=== PATIENT | female | born 1930 | race Caucasian/White ===

== ENCOUNTER 2017-06-17 21:19 | Emergency (ER) | payer MEDICARE ==
--- NOTE | 2017-06-17 21:47 | ER Document Report ---
ED Fall - General Mode of Arrival: Ambulatory Information source: Patient TRAVEL OUTSIDE OF THE [place] IN LAST 30 DAYS: No - General Chief Complaint: Fall Injury Stated Complaint: FALL/HEAD AND BACK PAIN Time Seen by Provider: 06/17/17 21:39 Notes: Patient is an 86-year-old female who presents to the emergency department today with complaints of a fall that occurred just prior to arrival. Patient states she lost her balance and fell backwards hitting her head on a garage door. Patient is on warfarin. Patient complains of tailbone/buttock pain as well. Patient states she has a headache, left eye pain, and associated dizziness. Patient denies any loss of consciousness. (MARYSOL GREEN) - Related data Allergies/Adverse Reactions: ibuprofen [From Motrin] Allergy (Mild, Verified 02/27/14 02:34) Penicillins Allergy (Mild, Verified 02/27/14 02:34) Past Medical History - General Information source: Patient - Social History Smoking Status: Never Smoker Cigarette use (# per day): No Frequency of alcohol use: None Drug Abuse: None Lives with: Family Family History: Reviewed & Not Pertinent Patient has suicidal ideation: No Patient has homicidal ideation: No - Medical History Medical History: Negative Renal/ Medical History: Denies: Hx Peritoneal Dialysis Past Surgical History: Reports: Hx Appendectomy, Hx Orthopedic Surgery - right knee replacement, Hx Thyroid Surgery - Immunizations Hx Diphtheria, Pertussis, Tetanus Vaccination: Yes Hx Pneumococcal Vaccination: 02/28/08 Review of Systems - Review of Systems Constitutional: No symptoms reported EENT: No symptoms reported Cardiovascular: See HPI, Dizziness Respiratory: No symptoms reported Gastrointestinal: No symptoms reported Genitourinary: No symptoms reported Female Genitourinary: No symptoms reported Musculoskeletal: See HPI, Back pain Skin: No symptoms reported Hematologic/Lymphatic: No symptoms reported Neurological/Psychological: See HPI, Headaches. denies: Lost consciousness -: Yes All other systems reviewed and negative Physical Exam - Vital signs Vitals: Temp Pulse Resp BP Pulse Ox 97.6 F 77 12 172/93 H 97 06/17/17 21:25 06/17/17 21:25 06/17/17 21:25 06/17/17 21:25 06/17/17 21:25 - Notes Notes: Physical Exam: General: Alert, appears well. HEENT: Normocephalic. Atraumatic, no hematoma. PERRL. Extraocular movements intact. Oropharynx clear. Neck: Supple. Non-tender. Respiratory: No respiratory distress. Clear and equal breath sounds bilaterally. Cardiovascular: Irregularly irregular, regular rate. Abdominal: Normal Inspection. Non-tender. No distension. Normal Bowel Sounds. Back: Tailbone tenderness with palpation. No deformity or step off. Extremities: Moves all four extremities. Upper extremities: Normal inspection. Normal ROM. Lower extremities: Normal inspection. No edema. Normal ROM. Neurological: Normal cognition. AAOx4. Normal speech. Psychological: Normal affect. Normal Mood. Skin: Warm. Dry. Normal color. (MARYSOL GREEN) Course - Re-evaluation Re-evalutation: 06/17/17 23:33 CT head and cervical spine show no acute abnormalities. Pending sacrum and coccyx x-ray at this time. Patient does complain of minor dizziness but she explicitly states that this occurred after her fall she was not dizzy prior to her fall. When I questioned her she again stated that her dizziness started after hitting her head not prior. Therefore, I do not feel any other workup is needed at this time. I did discuss if her symptoms continue she could be suffering from other concussion symptoms and would need to be reevaluated early next week by her primary care physician. She understands and agrees with this plan. 06/17/17 23:50 Patient coccyx x-ray shows no acute abnormality per my read. Patient was discharged. I was with patient while she was having x-ray and she was able to weight-bear without difficulty. I discussed using Tylenol for pain as well as heating pad. Regards to any dizziness that she may experience I expressed if she continues to have the symptoms he is to follow-up with primary care physician on Monday or Monday of next week. She was not ataxic did not express dizziness when getting up for x-ray. (ERVIN SOTO) - Vital Signs Vital signs: Temp Pulse Resp BP Pulse Ox 97.6 F 77 18 153/85 H 94 06/17/17 21:25 06/18/17 00:46 06/18/17 00:46 06/18/17 00:46 06/18/17 00:46 Discharge - Discharge Clinical Impression: Fall from standing Qualifiers: Encounter type: initial encounter Qualified Code(s): W19.XXXA - Unspecified fall, initial encounter Condition: Good Disposition: HOME, SELF-CARE Instructions: Coccyx Injury ([facility]) Additional Instructions: Please use [id number] Tylenol as needed for pain per instructions on bottle and use heating pad as discussed. If you begin to experience dizziness that becomes more frequent or is not improved over the next 24-48 hours please visit your primary care physician or come to emergency department for reevaluation on Monday. Referrals: SURESH ZARATE MD [Primary Care Provider] - 06/19/17 (If your symptoms are worsening or not improving) Scribe Attestation: 06/26/17 07:48 I personally performed the services described in the documentation, reviewed and edited the documentation which was dictated to the scribe in my presence, and it accurately records my words and actions. (ERVIN SOTO) Scribe Documentation - Scribe Written by Madisynibe:: Modesto Giraldo, 06/17/2017 [id number] acting as scribe for :: Marco Antonio
--- NOTE | 2017-06-17 22:41 | RADIOLOGY REPORT (SQ) ---
EXAM DESCRIPTION: CT CERVICAL SPINE WITHOUT; CT HEAD WITHOUT COMPLETED DATE/TIME: 06/17/2017 10:22 pm REASON FOR STUDY: fall from standing, hx of cervical fusion; fall, on warfarin COMPARISON: None. TECHNIQUE: Axial images acquired through the brain and cervical spine without intravenous contrast. Images reviewed with brain, subdural, lung, soft tissue and bone windows. Reconstructed coronal and sagittal MPR images reviewed. Images stored on PACS. All CT scanners at this facility use dose modulation, iterative reconstruction, and/or weight based d osing when appropriate to reduce radiation dose to as low as reasonably achievable (ALARA). [facility]: Dose Right [facility]: CareDose [facility]: Dose Right [facility]: Teradose 4D [facility]: [employer] RADIATION DOSE: CT Rad equipment meets quality standard of care and radiation dose reduction techniq ues were employed. CTDIvol: 16.6 mGy. DLP: 350 mGy-cm.; CT Rad equipment meets quality standard of ca re and radiation dose reduction techniques were employed. CTDIvol: 53.2 mGy. DLP: 1097 mGy-cm. mGy. LIMITATIONS: None. FINDINGS: Brain: Atrophy and small vessel disease. No hemorrhage or mass or shift. Intact bones. Clear paranasal sinuses. Cervical spine: Osteopenic. Postoperative and multilevel degenerative changes without evidence of f racture or bone lesion. No malalignment. Lung apices clear. Soft tissues intact. IMPRESSION: 1. Chronic intracranial changes. No acute abnormality. 2. Chronic cervical spine braden es. No acute abnormality. TECHNICAL DOCUMENTATION: JOB ID: [id number] Quality ID # [id number]: Final reports with documentation of one or more dose reduction techniques (e.g., Au tomated exposure control, adjustment of the mA and/or kV according to patient size, use of iterative reconstruction technique) 2010 [employer]- All Rights Reserved Reading location - IP/workstation name: [email or web address]
--- NOTE | 2017-06-17 22:41 | RADIOLOGY REPORT (SQ) ---
EXAM DESCRIPTION: CT CERVICAL SPINE WITHOUT; CT HEAD WITHOUT COMPLETED DATE/TIME: 06/17/2017 10:22 pm REASON FOR STUDY: fall from standing, hx of cervical fusion; fall, on warfarin COMPARISON: None. TECHNIQUE: Axial images acquired through the brain and cervical spine without intravenous contrast. Images reviewed with brain, subdural, lung, soft tissue and bone windows. Reconstructed coronal and sagittal MPR images reviewed. Images stored on PACS. All CT scanners at this facility use dose modulation, iterative reconstruction, and/or weight based d osing when appropriate to reduce radiation dose to as low as reasonably achievable (ALARA). [facility]: Dose Right [facility]: CareDose [facility]: Dose Right [facility]: Teradose 4D [facility]: [employer] RADIATION DOSE: CT Rad equipment meets quality standard of care and radiation dose reduction techniq ues were employed. CTDIvol: 16.6 mGy. DLP: 350 mGy-cm.; CT Rad equipment meets quality standard of ca re and radiation dose reduction techniques were employed. CTDIvol: 53.2 mGy. DLP: 1097 mGy-cm. mGy. LIMITATIONS: None. FINDINGS: Brain: Atrophy and small vessel disease. No hemorrhage or mass or shift. Intact bones. Clear paranasal sinuses. Cervical spine: Osteopenic. Postoperative and multilevel degenerative changes without evidence of f racture or bone lesion. No malalignment. Lung apices clear. Soft tissues intact. IMPRESSION: 1. Chronic intracranial changes. No acute abnormality. 2. Chronic cervical spine braden es. No acute abnormality. TECHNICAL DOCUMENTATION: JOB ID: [id number] Quality ID # [id number]: Final reports with documentation of one or more dose reduction techniques (e.g., Au tomated exposure control, adjustment of the mA and/or kV according to patient size, use of iterative reconstruction technique) 2010 [employer]- All Rights Reserved Reading location - IP/workstation name: [email or web address]
--- NOTE | 2017-06-18 00:05 | RADIOLOGY REPORT (SQ) ---
EXAM DESCRIPTION: SACRUM AND COCCYX COMPLETED DATE/TIME: 06/17/2017 11:54 pm REASON FOR STUDY: fell on buttocks, tailbone pain COMPARISON: None. FINDINGS: Three views sacrum and coccyx. Limiting osteopenia and obscuring gas and stool in the rectum and distal colon. No suspicious bone l esion. No displaced fracture evident. IMPRESSION: Limited as above. No gross fracture. TECHNICAL DOCUMENTATION: JOB ID: [id number] Reading location - IP/workstation name: [email or web address]
[2017-06-18 00:52] VITALS: BP 153/85
== END 2017-06-18 00:51 | disposition home or self-care (01) ==
LOC: ER 21:19
DX: S09.90XA Unspecified injury of head, initial encounter (principal); R51 Headache; M54.9 Dorsalgia, unspecified; M54.5 Low back pain; H57.12 Ocular pain, left eye; R42 Dizziness and giddiness; W19.XXXA Unspecified fall, initial encounter; W22.8XXA Striking against or struck by other objects, initial encounter; Z79.01 Long term (current) use of anticoagulants
CPT/HCPCS: 70450; 72125; 72220; 99284